=== PATIENT | male | born 1975 | race Caucasian/White ===

== ENCOUNTER 2020-10-05 18:04 | Emergency (ER) | payer OTHER ==
[~2020-10-05] VITALS: Ht 198.1 cm; Wt 138.3 kg
[2020-10-05] MEDS ORDERED: MEDROLDOSEPACK PO (19:35)
[2020-10-05] MEDS ORDERED: APAP W/CODEINE1 TA2 PO (19:35)
[2020-10-05] MEDS ORDERED: TESSALON PERLE100 MG PO (19:35)
[2020-10-05] MEDS ORDERED: ZPAK PO (19:35)
[2020-10-05 20:22] VITALS: BP 126/78
== END 2020-10-05 20:23 | disposition home or self-care (01) ==
LOC: M.ERS 18:04
DX: J18.8 Other pneumonia, unspecified organism (principal); Z20.822 Contact with and (suspected) exposure to COVID-19

== ENCOUNTER 2020-11-06 09:20 | Emergency (ER) | payer OTHER ==
[~2020-11-06] VITALS: Ht 198.1 cm; Wt 117.9 kg
[~2020-11-06 09:20] MED LIST: APAP W/CODEINE1 TA2 PO; MEDROLDOSEPACK PO; TESSALON PERLE100 MG PO; ZPAK PO
[2020-11-06] MEDS ORDERED: HYDROCODON-ACE1 EAC7 PO (11:46)
[2020-11-06 12:50] VITALS: BP 148/92
== END 2020-11-06 12:51 | disposition home or self-care (01) ==
LOC: M.ERS 09:20
DX: S82.391A Other fracture of lower end of right tibia, initial encounter for closed fracture (principal); S82.831A Other fracture of upper and lower end of right fibula, initial encounter for closed fracture; W22.8XXA Striking against or struck by other objects, initial encounter; Y93.89 Activity, other specified; Y92.89 Other specified places as the place of occurrence of the external cause; Y99.8 Other external cause status